=== PATIENT | female | born 1955 | race Caucasian/White ===

== ENCOUNTER → 2016-08-23 | Outpatient (CLI) | payer MEDICARE, MEDICAID ==
[~2016-08-23] MED LIST: ACET-2321 PO; CARV3.12 PO; DOXY100T2 PO; FURO20TA4 PO; INSU100C14 SQ; LEVO150T11 PO; LISI10TA7 PO
== END ==
LOC: NWCC 11:03
PROVIDERS: ATTEND Internal Medicine
DX: I87.2 Venous insufficiency (chronic) (peripheral) (principal); R60.0 Localized edema; L97.222 Non-pressure chronic ulcer of left calf with fat layer exposed; L97.822 Non-pressure chronic ulcer of other part of left lower leg with fat layer exposed; S81.801A Unspecified open wound, right lower leg, initial encounter
CPT/HCPCS: 11042; 11045; 97597; A6209; G0463

== ENCOUNTER → 2016-09-06 | Outpatient (CLI) | payer MEDICARE, MEDICAID ==
[~2016-09-06] MED LIST changes: +CALMOSEPTINE OINTMENT 3.5 G PACKET TOP ONE; +SALINE FLUSH 10ml SYRINGE IVF ONE
== END ==
LOC: NWCC 10:33
PROVIDERS: ATTEND Internal Medicine
DX: I87.2 Venous insufficiency (chronic) (peripheral) (principal); L97.822 Non-pressure chronic ulcer of other part of left lower leg with fat layer exposed; L97.222 Non-pressure chronic ulcer of left calf with fat layer exposed; R60.0 Localized edema; S81.801A Unspecified open wound, right lower leg, initial encounter; Z86.14 Personal history of Methicillin resistant Staphylococcus aureus infection
CPT/HCPCS: 11042; 11045; A6021; A6209; A9270; G0463

== ENCOUNTER → 2016-09-20 | Outpatient (CLI) | payer MEDICARE, MEDICAID ==
[~2016-09-20] MED LIST changes: -CALMOSEPTINE OINTMENT 3.5 G PACKET TOP ONE; -SALINE FLUSH 10ml SYRINGE IVF ONE
== END ==
LOC: NWCC 10:25
PROVIDERS: ATTEND Internal Medicine
DX: I87.2 Venous insufficiency (chronic) (peripheral) (principal); L97.822 Non-pressure chronic ulcer of other part of left lower leg with fat layer exposed; L97.222 Non-pressure chronic ulcer of left calf with fat layer exposed; S81.801A Unspecified open wound, right lower leg, initial encounter; R60.1 Generalized edema; Z86.14 Personal history of Methicillin resistant Staphylococcus aureus infection
CPT/HCPCS: 11042; 11045; A6209; G0463

== ENCOUNTER → 2016-10-05 | Outpatient (CLI) | payer MEDICARE, MEDICAID ==
[~2016-10-05] MED LIST changes: +CALMOSEPTINE OINT. 113 gm TUBE TOP ONE; +SALINE FLUSH 10ml SYRINGE IVF ONE
== END ==
LOC: NWCC 08:20
PROVIDERS: ATTEND Internal Medicine
DX: I87.2 Venous insufficiency (chronic) (peripheral) (principal); L97.822 Non-pressure chronic ulcer of other part of left lower leg with fat layer exposed; L97.222 Non-pressure chronic ulcer of left calf with fat layer exposed; R60.1 Generalized edema; S81.801A Unspecified open wound, right lower leg, initial encounter; L53.9 Erythematous condition, unspecified; Z86.14 Personal history of Methicillin resistant Staphylococcus aureus infection
CPT/HCPCS: 11042; 11045; A6209; A9270; G0463

== ENCOUNTER 2016-10-30 16:11 | Emergency (ER) | payer MEDICARE, MEDICAID ==
[~2016-10-30] VITALS: Ht 152.4 cm; Wt 106.0 kg
[~2016-10-30 16:11] MED LIST changes: -CALMOSEPTINE OINT. 113 gm TUBE TOP ONE; -SALINE FLUSH 10ml SYRINGE IVF ONE
--- OUTSIDE RECORDS SUMMARY | 2016-10-30 16:14 | XMS REPORT ---
Author Elli Brush 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
--- OUTSIDE RECORDS SUMMARY | 2016-10-30 16:14 | XMS REPORT ---
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
--- OUTSIDE RECORDS SUMMARY | 2016-10-30 16:14 | XMS REPORT ---
Author Elli Brush [facility] eClinicalWorks Address Unknown Phone Unavailable Care Team Providers Care Lock And Dam Operator Name Role Phone Elli Hyman CP Unavailable Allergies, Adverse Reactions, Alerts Substance Reaction Event Type Zinc Info Not Available Drug Allergy codeine Info Not Available Non Drug Allergy sulfa Info Not Available Non Drug Allergy latex welts Non Drug Allergy Problems Problem Type Condition Code Onset Dates Condition Status Problem Peripheral vascular disease I73.9 Active Problem Varicose veins of unspecified lower extremity with ulcer of unspecified site I83.009 Active Problem Adjustment disorder with depressed mood F43.21 Active Assessment Peripheral vascular disease I73.9 Active Assessment Non-pressure chronic ulcer of unspecified part of unspecified lower leg with unspecified severity L97.909 Active Problem Non-pressure chronic ulcer of unspecified part of unspecified lower leg with unspecified severity L97.909 Active Problem 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 Medications Medication Code System Code Instructions Start Date End Date Status Dosage Furosemide [facility] [address]-09 20 MG Orally Three times a week 1 tablet on Sunday, Sun, Sunday Hydrocodone-Acetaminophen [facility] [address]-93 7.5-325 MG Orally at bedtime and before wound center appointments May 24, 2016 May 31, 2016 1 tablet as needed Carvedilol [facility] [address]-83 3.125 MG Orally once a day 1 tablet with food Levothyroxine Sodium [facility] 22000186124 150 MCG 1 (ONE) TABLET, ORAL, DAILY Lisinopril [facility] [address]-02 10 MG Orally Once a day 1 tablet Humalog KwikPen [facility] [address]-00 100 UNIT/ML Subcutaneous three times a day sliding scale Procedures Procedure Coding System Code Date OFFICE VISIT, EST-LOW COMPLEXITY (15 MIN.) CPT-4 63574 May 24, 2016 [facility] visit Established Patient CPT-4 G0467 May 24, 2016 Vital Signs Date/Time: May 24, 2016 Temperature 97.8 F Height 60 in Weight 203 lbs Blood Pressure Diastolic 48 mm Hg Blood Pressure Systolic 104 mm Hg Cardiac Monitoring Heart Rate 60 /min BMI 39.64 Index Oximetry 97 % Results No Known Results Summary Purpose eClinicalWorks Submission
--- OUTSIDE RECORDS SUMMARY | 2016-10-30 16:15 | XMS REPORT ---
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 Assessment PVD (peripheral vascular disease) I73.9 Active Problem PVD (peripheral vascular disease) I73.9 Active Assessment 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 Medications Medication Code System Code Instructions Start Date End Date Status Dosage Lisinopril [facility] [address]-12 10 MG Orally Once a day 1 tablet Furosemide [facility] [address]-34 20 MG Orally Three times a week 1 tablet on Sunday, Sun, Sunday Carvedilol [facility] [address]-95 3.125 MG Orally once a day 1 tablet with food Levothyroxine Sodium [facility] 62130410043 150 MCG 1 (ONE) TABLET, ORAL, DAILY Humalog KwikPen [facility] [address]-42 100 UNIT/ML Subcutaneous three times a day sliding scale Procedures Procedure Coding System Code Date OFFICE VISIT, EST-LOW COMPLEXITY (15 MIN.) CPT-4 21139 Apr 19, 2016 [facility] visit Established Patient CPT-4 G0467 Apr 19, 2016 Vital Signs Date/Time: Apr 19, 2016 Temperature 97.8 F Height 60 in Weight 199.8 lbs Blood Pressure Diastolic 70 mm Hg Blood Pressure Systolic 122 mm Hg Cardiac Monitoring Heart Rate 56 /min BMI 39.02 Index Oximetry 98 % Results No Known Results Summary Purpose eClinicalWorks Submission
--- OUTSIDE RECORDS SUMMARY | 2016-10-30 16:15 | XMS REPORT ---
Author Nicki Rudolph Organization eClinicalWorks Address Unknown Phone Unavailable Care Team Providers Care Performance Architect Name Role Phone Nicki Magallon CP Unavailable Allergies, Adverse Reactions, Alerts Substance Reaction Event Type Zinc Info Not Available Drug Allergy codeine Info Not Available Non Drug Allergy sulfa Info Not Available Non Drug Allergy latex welts Non Drug Allergy Problems Problem Type Condition Code Onset Dates Condition Status Problem Varicose veins of unspecified lower extremity with ulcer of unspecified site I83.009 Active Problem Non-pressure chronic ulcer of unspecified part of unspecified lower leg with unspecified severity L97.909 Active Problem Peripheral vascular disease I73.9 Active Assessment Non-pressure chronic ulcer of unspecified part of unspecified lower leg with unspecified severity L97.909 Active Assessment Peripheral vascular disease I73.9 Active Problem 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 Assessment Varicose veins of unspecified lower extremity with ulcer of unspecified site I83.009 Active Medications Medication Code System Code Instructions Start Date End Date Status Dosage Levothyroxine Sodium [facility] 97735832126 150 MCG 1 (ONE) TABLET, ORAL, DAILY Carvedilol [facility] [address]-89 3.125 MG Orally once a day 1 tablet with food Lisinopril [facility] [address]-85 10 MG Orally Once a day 1 tablet Levaquin [facility] [address]-95 750 MG Orally every 24 hrs May 04, 2016Apr 1 tablet Furosemide [facility] [address]-00 20 MG Orally Three times a week 1 tablet on Sunday, Sun, Sunday Humalog KwikPen [facility] [address]-95 100 UNIT/ML Subcutaneous three times a day sliding scale Procedures Procedure Coding System Code Date OFFICE VISIT, EST-LOW COMPLEXITY (15 MIN.) CPT-4 07236 May 05, 2016 [facility] visit Established Patient CPT-4 G0467 May 05, 2016 Vital Signs Date/Time: May 05, 2016 Temperature 97.7 F Height 60 in Weight 202.4 lbs Blood Pressure Diastolic 58 mm Hg Blood Pressure Systolic 116 mm Hg Cardiac Monitoring Heart Rate 55 /min BMI 39.52 Index Oximetry 97 % Respiratory Rate 18 /min Results No Known Results Summary Purpose eClinicalWorks Submission
--- OUTSIDE RECORDS SUMMARY | 2016-10-30 16:15 | XMS REPORT ---
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 [address]-31 3.125 MG Orally once a day 1 tablet with food Results No Known Results Summary Purpose eClinicalWorks Submission
--- OUTSIDE RECORDS SUMMARY | 2016-10-30 16:15 | XMS REPORT ---
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
--- OUTSIDE RECORDS SUMMARY | 2016-10-30 16:15 | XMS REPORT ---
Author Anabella Piper Organization eClinicalWorks Address Unknown Phone Unavailable Care Team Providers Care Shear Scrapman Name Role Phone Anabella Weiner CP Unavailable Allergies No Known Allergies Problems Problem Type Condition Code Onset Dates Condition Status Assessment Encounter for consultation Z71.9 Active Problem Peripheral vascular disease I73.9 Active Problem Varicose veins of unspecified lower extremity with ulcer of unspecified site I83.009 Active Problem Adjustment disorder with depressed mood F43.21 Active Assessment Adjustment disorder with depressed mood F43.21 Active Assessment Medical non-compliance Z91.19 Active Problem Non-pressure chronic ulcer of unspecified part of unspecified lower leg with unspecified severity L97.909 Active Problem 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 Medications Medication Code System Code Instructions Start Date End Date Status Dosage Carvedilol [facility] [address]-88 3.125 MG Orally once a day 1 tablet with food Levaquin [facility] [address]-28 750 MG Orally every 24 hrs May 04, 2016Apr 1 tablet Humalog KwikPen [facility] [address]-19 100 UNIT/ML Subcutaneous three times a day sliding scale Lisinopril [facility] [address]-97 10 MG Orally Once a day 1 tablet Furosemide [facility] [address]-12 20 MG Orally Three times a week 1 tablet on Sunday, Sun, Sunday Levothyroxine Sodium [facility] 35167457872 150 MCG 1 (ONE) TABLET, ORAL, DAILY Results No Known Results Summary Purpose eClinicalWorks Submission
--- OUTSIDE RECORDS SUMMARY | 2016-10-30 16:15 | XMS REPORT ---
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
--- OUTSIDE RECORDS SUMMARY | 2016-10-30 16:15 | XMS REPORT ---
Author Elli Brush [facility] eClinicalWorks Address Unknown Phone Unavailable Care Team Providers Care Crm Marketing Manager Name Role Phone Elli Hyman CP Unavailable Allergies, Adverse Reactions, Alerts Substance Reaction Event Type Zinc Info Not Available Drug Allergy codeine Info Not Available Non Drug Allergy sulfa Info Not Available Non Drug Allergy latex welts Non Drug Allergy Problems Problem Type Condition Code Onset Dates Condition Status Assessment Peripheral vascular disease I73.9 Active Assessment Proteus mirabilis infection B96.4 Active Assessment Group B streptococcal infection A49.1 Active Assessment Non-pressure chronic ulcer of unspecified part of unspecified lower leg with unspecified severity L97.909 Active Problem Peripheral vascular disease I73.9 Active Problem Varicose veins of unspecified lower extremity with ulcer of unspecified site I83.009 Active Problem Adjustment disorder with depressed mood F43.21 Active Assessment Pseudomonas aeruginosa infection A49.8 Active Assessment MRSA (methicillin resistant staph aureus) culture positive Z22.322 Active Problem Non-pressure chronic ulcer of unspecified part of unspecified lower leg with unspecified severity L97.909 Active Problem 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 Medications Medication Code System Code Instructions Start Date End Date Status Dosage Furosemide [facility] [address]-52 20 MG Orally Three times a week 1 tablet on Sunday, Sun, Sunday Lisinopril [facility] [address]-69 10 MG Orally Once a day 1 tablet Levothyroxine Sodium [facility] 47924027112 150 MCG 1 (ONE) TABLET, ORAL, DAILY Levaquin [facility] [address]-37 750 MG Orally every 24 hrs May 04, 2016Apr 1 tablet Humalog KwikPen [facility] [address]-25 100 UNIT/ML Subcutaneous three times a day sliding scale Carvedilol [facility] [address]-19 3.125 MG Orally once a day 1 tablet with food Procedures Procedure Coding System Code Date OFFICE VISIT, EST-LOW COMPLEXITY (15 MIN.) CPT-4 88412 2016 [facility] visit Established Patient CPT-4 G0467 2016 Vital Signs Date/Time: 2016 Temperature 97.8 F Height 60 in Weight 202.8 lbs Blood Pressure Diastolic 50 mm Hg Blood Pressure Systolic 108 mm Hg Cardiac Monitoring Heart Rate 60 /min BMI 39.60 Index Oximetry 98 % Results No Known Results Summary Purpose eClinicalWorks Submission
--- OUTSIDE RECORDS SUMMARY | 2016-10-30 16:15 | XMS REPORT ---
Author Author Hebert Ventura Organization [facility] Address [address] [place] [address] Care Team Providers Care Dental Officer Name Role Phone Hebert Ventura Unavailable [phone] PROBLEMS Type Condition ICD9-CM Code KNP89-QF Code Onset Dates Condition Status SNOMED Code Problem Leg ulcer, left L97.929 Active [id number] Problem Hypertension I10 Active 64951033 Problem Abnormal EKG R94.31 Active 601070898 Problem Dyspnea on effort R06.09 Active 26570350 ALLERGIES Unknown Allergies SOCIAL HISTORY No smoking Hx information available PLAN OF CARE VITAL SIGNS MEDICATIONS Unknown Medications RESULTS No Results PROCEDURES No Known procedures IMMUNIZATIONS No Known Immunizations
--- OUTSIDE RECORDS SUMMARY | 2016-10-30 16:15 | XMS REPORT | Continuity of Care Document ---
Author Author [facility] Organization [facility] Address Unknown Phone Unavailable Support Name Relationship Address Phone STEPH DAVIS DO Caregiver [address] [place] [address] Unavailable STEPH DAVIS DO Caregiver [address] [place] [address] Unavailable KATHY CHUN APRN Caregiver [address] [place] [address] Unavailable ESTEBAN PADRON Next Of Kin Unknown [phone] Insurance Providers Guarantor Boogie Padron Address [address] [address] Email DENIED/NO TO PT PORTAL Payer [facility] Community Plan Policy Number [id number] Subscriber's Name Boogie Padron Relationship 18 Self Effective Date 16 Expiration Date 16 Payer Medicare Policy Number [id number] Subscriber's Name Boogie Padron Relationship 18 Self Advance Directives Directive Response Recorded Date/Time Ordered Resuscitation Status Full Code 05/10/16 12:56pm Resuscitation Documents on File No 05/10/16 11:21am DPOA for Healthcare Only No 05/10/16 8:32pm Living Will No 05/10/16 11:21am Problems Active Problems Medical Problem Onset Date Status CHF (congestive heart failure) Unknown DM (diabetes mellitus) Unknown HTN (hypertension) Unknown Hypothyroidism Unknown Obesity (BMI 35.0-39.9 without comorbidity) Unknown PVD (peripheral vascular disease) Unknown Ulcer, venous stasis Unknown Medications Current Home Medications Medication Dose Units Route Directions Days Qty Instructions Start Date Acetaminophen (Tylenol) 325 Mg Tablet 650 Mg Oral Q6h/0300,0900,1500,2100 as needed for Pain 30 Tablet 05/12/16 Carvedilol (Coreg) 3.125 Mg Tablet 3.125 Mg Oral Daily BEST WITH FOOD. 05/10/16 Doxycycline Hyclate 100 Mg Tablet 100 Mg Oral Twice Daily With Meals 28 Tablet 05/12/16 Furosemide 20 Mg Tablet 1 Tab Oral Mwf 05/10/16 Insulin Lispro (Humalog) 100 Unit/1 Ml Cartridge 5 Unit Sub-Q Give With Breakfast 05/10/16 Insulin Lispro (Humalog) 100 Unit/1 Ml Cartridge 7 Unit Sub-Q Give With Lunch 05/10/16 Insulin Lispro (Humalog) 100 Unit/1 Ml Cartridge 7 Unit Sub-Q Give With Supper 05/10/16 Levothyroxine Sodium 150 Mcg Tablet 150 Mcg Oral Before Breakfast Once daily before breakfast. 05/10/16 Lisinopril 10 Mg Tablet 10 Mg Oral Daily for Hypertension Social History Social History Problem Response Recorded Date/Time Onset Date Status Reason for Hospitalization cellulitis and diabetic wound 05/12/2016 1:47pm Not Applicable Not Applicable Has the pt used tobacco in the last 12 months No 2016 11:28am Not Applicable Not Applicable Query Response Start Date Stop Date Smoking Status Former smoker Hospital Discharge Instructions Instructions: Care Instructions: I was in the hospital because (patient own words): I gotta infection and they want to give me certain medicines Discharge Diet: 1800-calorie ADA Discharge Activity: Up with walker Try to keep legs elevated when sitting Follow Up Appointments: PLEASE MAKE APPOINTMENT WITH [facility] CL[facility] ON Sunday05/15/16 Pending Lab / Results: No Pending Lab Patient Instructions: Monitor your blood sugars fasting and 2 hours after meals Expected Signs/Symptoms: Not applicable Notify Physician If: Call your physician if you're having increased pain, fevers, or significant drainage from your leg wound During Business Hours:: Please call the physician's office at After Business Hours:: Please call [phone] and have the golf course equipment operator page the physician. Pain Management/Treatment: Tylenol as needed Pain Scale Utilized to Educate Patient: 0-10 Pain Scale Wound/Incision Care: Keep dressing on leg dry and intact and it will be changed on May 15 in the wound clinic Condition at time of discharge: Good Plan of Care Discharge Date 05/12/16 4:30pm Disposition 06 HOME HEALTH SERVICE Instructions/Education Provided [facility] Congestive Heart Failure DI for Wound Dehiscence Prescriptions See Medication Section Additional Instructions/Education follow up in the wound care clinic this SundayMay 15 Follow up in 1-[address] Davis Care Plan and Goals See Discharge Instructions Section Functional Status Query Response Date Recorded Mobility Status Ambulatory w/assist 2016 2:48pm Assistive Devices Front Wheeled Walker 2016 2:48pm Activity Limitations Pain 2016 2:48pm Feeding Ability Independent 2016 2:48pm Toileting Ability Independent 2016 2:48pm Grooming Ability Independent 2016 2:48pm Dressing Ability Independent 2016 2:48pm Driving Ability Dependent 2016 2:48pm Housework Ability Independent 2016 2:48pm Meal Preparation Ability Independent 2016 2:48pm Stair Climbing Ability Independent 2016 2:48pm Ability to complete ADL's impeded by No change 2016 2:48pm Cognitive/Perceptual Impairments Impaired vision 2016 2:48pm Visual Assistive Devices Glasses With patient 2016 2:48pm Preferred Method of Learning Reading Listening 2016 2:48pm Allergies, Adverse Reactions, Alerts Allergen Type Severity Reaction Status Last Updated Sulfa (Sulfonamide Antibiotics) Allergy Mild RASH Active 05/10/16 Latex Allergy Intermediate HIVES Active 05/10/16 Sulfur dioxide Allergy Mild RASH Active 05/10/16 Immunizations Query Response on File Recorded Date/Time Hx Influenza Vaccination Y Mar 2016 05/10/16 11:28am Hx Pneumococcal Vaccination No 05/10/16 11:28am Hx Influenza Vaccination Y Mar 2016 05/10/16 11:28am Vital Signs Acute Vital Signs Vital Response Date/Time Temperature (Fahrenheit) 97.0 deg F (96.8 - 99.1) 05/12/2016 4:00pm Temperature (Calculated Celsius) 36.60445 degrees C (36.0 - 37.3) 05/12/2016 4:00pm Pulse Rate (adult) 75 bpm (60 - 100) 05/12/2016 4:00pm Respiratory Rate 16 breaths/min (10 - 20) 05/12/2016 4:00pm O2 Sat by Pulse Oximetry 95 % (90 - 100) 05/12/2016 4:00pm Oxygen Delivery Method Room Air 05/12/2016 4:00pm Blood Pressure 142/70 mm Hg 05/12/2016 4:00pm Blood Pressure Source Automatic Cuff 05/12/2016 4:00pm Height (Feet) 5 feet 05/11/2016 5:58pm Height (Inches) 0.00 inches 05/11/2016 5:58pm Weight (Kilograms) 93.000 kg 05/12/2016 7:56am Body Mass Index (BMI) 39.7 2016 11:27am Results Laboratory Results Test Name Result Units Flags Reference Collection Date/Time Result Date/ Time Comments White Blood Count 4.6 T/MM3 4.5-11.0 05/12/2016 7:59am 05/12/2016 8: 16am Red Blood Count 4.24 M/MM3 4.00-5.20 05/12/2016 7:59am 05/12/2016 8: 16am Hemoglobin 12.3 GM/DL 12-16 05/12/2016 7:59am 05/12/2016 8:16am Hematocrit 39.4 % 36-46 05/12/2016 7:59am 05/12/2016 8:16am Mean Corpuscular Volume 92.9 UM3 80-100 05/12/2016 7:59am 05/12/2016 8: 16am Mean Corpuscular Hemoglobin 29.0 UUG 26-34 05/12/2016 7:59am 2015 8:16am Mean Corpuscular Hemoglobin Concent 31.2 GM/DL 31-37 05/12/2016 7:59am 05/12/2016 8:16am RDW Standard Deviation 46.1 FL 36.9-50.2 05/12/2016 7:59am 05/12/2016 8 :16am Platelet Count 124 T/MM3 L 130-400 05/12/2016 7:59am 05/12/2016 8:16am Mean Platelet Volume 11.5 UM3 9.4-12.4 05/12/2016 7:59am 05/12/2016 8: 16am Neutrophils (%) (Auto) 73.7 % H 33-66 05/12/2016 7:59am 05/12/2016 8: 16am Lymphocytes (%) (Auto) 14.2 % L 23-45 05/12/2016 7:59am 05/12/2016 8: 16am Monocytes (%) (Auto) 8.7 % 0-9.0 05/12/2016 7:59am 05/12/2016 8:16am Eosinophils (%) (Auto) 2.8 % 0-4 05/12/2016 7:59am 05/12/2016 8:16am Basophils (%) (Auto) 0.4 % 0-2 05/12/2016 7:59am 05/12/2016 8:16am Immature Granulocyte % (Auto) 0.2 % 0.0-0.5 05/12/2016 7:59am 2015 8:16am Absolute Neutrophils (auto) 3.4 T/MM3 1.8-7.7 05/12/2016 7:59am 2015 8:16am Absolute Lymphocytes (auto) 0.7 T/MM3 L 1-4.8 05/12/2016 7:59am 2015 8:16am Absolute Monocytes (auto) 0.4 T/MM3 0-0.8 05/12/2016 7:59am 05/12/2016 8:16am Absolute Eosinophils (auto) 0.1 T/MM3 0-0.5 05/12/2016 7:59am 2015 8:16am Absolute Basophils (auto) 0.0 T/MM3 0-0.2 05/12/2016 7:59am 05/12/2016 8:16am Absolute Immature Granulocyte (auto 0.01 T/MM3 0.00-0.03 05/12/2016 7: 59am 05/12/2016 8:16am Prothromb Time International Ratio 1.21 0.99-1.21 05/11/2016 4:37am 05/11/2016 5:22am THERAPUTIC RANGE=2.00-3.00 FOR ANTI-THROMBOSIS THERAPUTIC RANGE=2.50-3.50 FOR IMPLANTED VALVE Activated Partial Thromboplast Time 37.6 SEC H 24-36 05/11/2016 4:37am 05/11/2016 5:22am Icterus Index < 2 0-7 05/12/2016 7:59am 05/12/2016 8:28am Chemistry Specimen Hemolysis 50 H 0-25 05/12/2016 7:59am 05/12/2016 8: 28am 26-70: Specimen Exhibited Slight Hemolysis - can falsely elevate K (Potassium) and Urine Protein. Turbidity < 20 0-20 05/12/2016 7:59am 05/12/2016 8:28am Sodium Level 141 MEQ/L 134-144 05/12/2016 7:59am 05/12/2016 8:28am Potassium Level 5.0 MEQ/L 3.6-5 05/12/2016 7:59am 05/12/2016 8:28am Chloride Level 107 MEQ/L 98-107 05/12/2016 7:59am 05/12/2016 8:28am Carbon Dioxide Level 24 MEQ/L 22-30 05/12/2016 7:59am 05/12/2016 8: 28am Anion Gap 10 MEQ/L 5-15 05/12/2016 7:59am 05/12/2016 8:28am Blood Urea Nitrogen 34.0 MG/DL H 7-05/12/2016 7:59am 05/12/2016 8: 28am Creatinine 1.1 MG/DL 0.7-1.2 05/12/2016 7:59am 05/12/2016 8:28am BUN/Creatinine Ratio 31 RATIO H 6-05/12/2016 7:59am 05/12/2016 8: 28am Glomerular Filtration Rate Calc 50 05/12/2016 7:59am 05/12/2016 8: 28am Glucose Level 122 MG/DL H 65-110 05/12/2016 7:59am 05/12/2016 8:28am Calculated Osmolality 280 MOSM/KG 261-280 05/12/2016 7:59am 05/12/2016 8:28am Calcium Level 9.0 MG/DL 8.4-10.2 05/12/2016 7:59am 05/12/2016 8:28am Phosphorus Level 3.2 MG/DL 2.5-4.5 2016 1:19pm 2016 2:16pm Total Bilirubin 0.90 MG/DL 0.20-1.30 05/12/2016 7:59am 05/12/2016 8: 28am Alkaline Phosphatase 115 U/L 38-126 05/12/2016 7:59am 05/12/2016 8: 28am Total Protein 7.1 G/DL 6.3-8.2 05/12/2016 7:59am 05/12/2016 8:28am Albumin 3.5 G/DL 3.5-5.0 05/12/2016 7:59am 05/12/2016 8:28am Globulin 3.6 G/DL 2.4-3.6 05/12/2016 7:59am 05/12/2016 8:28am Albumin/Globulin Ratio 1.0 RATIO L 1.1-2.2 05/12/2016 7:59am 05/12/2016 8:28am Aspartate Amino Transf (AST/SGOT) 21 U/L 14-36 05/12/2016 7:59am 2015 8:28am Alanine Aminotransferase (ALT/SGPT) 22 U/L 9-52 05/12/2016 7:59am 05/12 8:28am Total Creatine Kinase 38 U/L 30-135 2016 1:19pm 2016 2: 55pm Troponin I 0.012 ng/ml 0-0.12 2016 1:19pm 2016 9:26pm Troponin values with a difference of 55% increase from orginal troponin value represent a true biological DELTA value. (%increase Calc=Orginal Troponin value, divided by subsequent Troponin value, multiplied by 100) C-Reactive Protein 35.5 MG/L H 0-9 05/12/2016 7:59am 05/12/2016 8:28am Magnesium Level 1.9 MG/DL 1.6-2.3 2016 1:19pm 2016 2:31pm Plasma Lactate 1.2 MMOL/L 0.6-2.2 2016 1:19pm 2016 2:16pm Procalcitonin < 0.05 NG/ML 2016 1:19pm 2016 2:43pm PCT < /=0.5 ng/mL - sepsis not likely; PCT >0.5 and </=2 ng/mL - sepsis possible; PCT >2 ng/mL - sepsis likely; PCT >/=10 ng/mL - systemic inflammatory response - sepsis or septic shock highly indicated. Thyroid Stimulating Hormone (TSH) 1.03 MIU/L 0.47-4.68 2016 1: 19pm 2016 2:59pm Urine Collection Type CLEANCATCH-MIDSTREAM 2016 3:38pm 2015 3:50pm Urine Color YELLOW YELLOW 2016 3:38pm 2016 3:50pm Urine Turbidity CLEAR CLEAR 2016 3:38pm 2016 3:50pm Urine Specific [place] 1.020 1.015-1.025 2016 3:38pm 2015 3:50pm Urine pH 5.5 5.0-8.0 2016 3:38pm 2016 3:50pm Urine Leukocyte Esterase NEGATIVE NEGATIVE 2016 3:38pm 2015 3:50pm Urine Nitrite NEGATIVE NEGATIVE 2016 3:38pm 2016 3:50pm Urine Protein NEGATIVE NEGATIVE 2016 3:38pm 2016 3:50pm Urine Glucose (UA) NEGATIVE NEGATIVE 2016 3:38pm 2016 3: 50pm Urine Ketones NEGATIVE NEGATIVE 2016 3:38pm 2016 3:50pm Urine Urobilinogen 0.2 EU/DL NORMAL 2016 3:38pm 2016 3: 50pm Urine Bilirubin NEGATIVE NEGATIVE 2016 3:38pm 2016 3: 50pm Urine Blood TRACE-INTACT A NEGATIVE 2016 3:38pm 2016 3: 50pm Urine WBC 0-1 /HPF 0-5 2016 3:38pm 2016 4:19pm Urine RBC 0-1 /HPF 0-3 2016 3:38pm 2016 4:19pm Urine Squamous Epithelial Cells 5-10 2016 3:38pm 2016 4 :19pm Urine Bacteria TRACE H NEGATIVE 2016 3:38pm 2016 4:19pm Urine Culture Indicated CULT NOT INDICATED 2016 3:38pm 2015 4:19pm Glucometer 211 mg/dL H 65-110 05/12/2016 11:18am 05/12/2016 2:16pm Microbiology Results Procedure Source Organism/Result Collection Date/Time Result Date/Time Result Status Blood Culture Peripheral/Iv Start NO GROWTH AFTER 48 HOURS 2016 1: 19pm 05/12/2016 1:55pm Preliminary WOUND CULTURE DEEP TISS-AER/AN Leg, Left Lower S. AUREUS, METH-RESISTANT 4:46pm 05/12/2016 9:03am Preliminary PSEUDOMONAS AERUGINOSA 2016 4:46pm 05/12/2016 9:03am Preliminary Name: BOOGIE PADRON Unit #: [id number] : 1955 Sex: F DISCHARGE SUMMARY Admit Date: 05/10/16 Report #: [id number] [facility] General Date Date DATE: 05/12/16 TIME: 13:31 Attending Physician Steph Davis DO Admitting Physician Steph Davis DO Consulting Physician Em Currie MD Admitting Diagnosis lower extremity ulcers, cellulitis. Discharge Diagnosis #1 chronic venous stasis ulcer left leg associated with diabetes #2 cellulitis associated with ulcer left leg #3 type 2 diabetes mellitus #4 hypothyroidism #5 hypertension #6 congestive heart failure #7 history of non-adherence with medical recommendations Procedures Bedside debridement of left venous stasis ulcer by Dr. Hunt on 05/11/2016 Laboratory Laboratory Tests Test 05/11/16 04:37 05/11/16 05:41 05/11/16 11:03 05/11/16 16:55 White Blood Count 4.4T/MM3 (4.5-11.0) Red Blood Count 3.76M/MM3 (4.00-5.20) Hemoglobin 11.2GM/DL (12-16) Hematocrit 35.2% (36-46) Mean Corpuscular Volume 93.6UM3 (80-100) Mean Corpuscular Hemoglobin 29.8UUG (26-34) Mean Corpuscular Hemoglobin Concent 31.8GM/DL (31-37) RDW Standard Deviation 45.3FL (36.9-50.2) Platelet Count 114T/MM3 (130-400) Mean Platelet Volume 11.2UM3 (9.4-12.4) Immature Granulocyte % (Auto) 0.0% (0.0-0.5) Neutrophils (%) (Auto) 67.6% (33-66) Lymphocytes (%) (Auto) 16.4% (23-45) Monocytes (%) (Auto) 12.3% (0-9.0) Eosinophils (%) (Auto) 3.2% (0-4) Basophils (%) (Auto) 0.5% (0-2) Absolute Immature Granulocyte (auto 0.00T/MM3 (0.00-0.03) Absolute Neutrophils (auto) 3.0T/MM3 (1.8-7.7) Absolute Lymphocytes (auto) 0.7T/MM3 (1-4.8) Absolute Monocytes (auto) 0.5T/MM3 (0-0.8) Absolute Eosinophils (auto) 0.1T/MM3 (0-0.5) Absolute Basophils (auto) 0.0T/MM3 (0-0.2) Prothromb Time International Ratio 1.21 (0.99-1.21) Activated Partial Thromboplast Time 37.6SEC (24-36) Turbidity < 20 (0-20) Sodium Level 141MEQ/L (134-144) Potassium Level 4.4MEQ/L (3.6-5) Chloride Level 105MEQ/L (98-107) Carbon Dioxide Level 25MEQ/L (22-30) Anion Gap 11MEQ/L (5-15) Blood Urea Nitrogen 33.0MG/DL (7-17) Creatinine 1.1MG/DL (0.7-1.2) Glomerular Filtration Rate Calc 50 BUN/Creatinine Ratio 30RATIO (6-26) Glucose Level 134MG/DL (65-110) Calculated Osmolality 280MOSM/KG (261-280) Calcium Level 8.8MG/DL (8.4-10.2) Total Bilirubin 0.70MG/DL (0.20-1.30) Icterus Index < 2 (0-7) Aspartate Amino Transf (AST/SGOT) 15U/L (14-36) Alanine Aminotransferase (ALT/SGPT) 23U/L (9-52) Alkaline Phosphatase 105U/L (38-126) Total Protein 5.9G/DL (6.3-8.2) Albumin 2.8G/DL (3.5-5.0) Globulin 3.1G/DL (2.4-3.6) Albumin/Globulin Ratio 0.9RATIO (1.1-2.2) Chemistry Specimen Hemolysis < 15 (0-25) Glucometer 141mg/dL (65-110) 273mg/dL (65-110) 134mg/dL (65-110) Test 05/11/16 19:43 05/11/16 20:41 05/12/16 05:30 05/12/16 07:59 White Blood Count 5.7T/MM3 (4.5-11.0) 4.6T/MM3 (4.5-11.0) Red Blood Count 4.16M/MM3 (4.00-5.20) 4.24M/MM3 (4.00-5.20) Hemoglobin 12.4GM/DL (12-16) 12.3GM/DL (12-16) Hematocrit 38.1% (36-46) 39.4% (36-46) Mean Corpuscular Volume 91.6UM3 (80-100) 92.9UM3 (80-100) Mean Corpuscular Hemoglobin 29.8UUG (26-34) 29.0UUG (26-34) Mean Corpuscular Hemoglobin Concent 32.5GM/DL (31-37) 31.2GM/DL (31-37) RDW Standard Deviation 45.6FL (36.9-50.2) 46.1FL (36.9-50.2) Platelet Count 122T/MM3 (130-400) 124T/MM3 (130-400) Mean Platelet Volume 11.6UM3 (9.4-12.4) 11.5UM3 (9.4-12.4) Immature Granulocyte % (Auto) 0.5% (0.0-0.5) 0.2% (0.0-0.5) Neutrophils (%) (Auto) 69.6% (33-66) 73.7% (33-66) Lymphocytes (%) (Auto) 15.9% (23-45) 14.2% (23-45) Monocytes (%) (Auto) 11.1% (0-9.0) 8.7% (0-9.0) Eosinophils (%) (Auto) 2.6% (0-4) 2.8% (0-4) Basophils (%) (Auto) 0.3% (0-2) 0.4% (0-2) Absolute Immature Granulocyte (auto 0.03T/MM3 (0.00-0.03) 0.01T/MM3 (0.00-0.03) Absolute Neutrophils (auto) 4.0T/MM3 (1.8-7.7) 3.4T/MM3 (1.8-7.7) Absolute Lymphocytes (auto) 0.9T/MM3 (1-4.8) 0.7T/MM3 (1-4.8) Absolute Monocytes (auto) 0.6T/MM3 (0-0.8) 0.4T/MM3 (0-0.8) Absolute Eosinophils (auto) 0.2T/MM3 (0-0.5) 0.1T/MM3 (0-0.5) Absolute Basophils (auto) 0.0T/MM3 (0-0.2) 0.0T/MM3 (0-0.2) Glucometer 155mg/dL (65-110) 127mg/dL (65-110) Turbidity < 20 (0-20) Sodium Level 141MEQ/L (134-144) Potassium Level 5.0MEQ/L (3.6-5) Chloride Level 107MEQ/L (98-107) Carbon Dioxide Level 24MEQ/L (22-30) Anion Gap 10MEQ/L (5-15) Blood Urea Nitrogen 34.0MG/DL (7-17) Creatinine 1.1MG/DL (0.7-1.2) Glomerular Filtration Rate Calc 50 BUN/Creatinine Ratio 31RATIO (6-26) Glucose Level 122MG/DL (65-110) Calculated Osmolality 280MOSM/KG (261-280) Calcium Level 9.0MG/DL (8.4-10.2) Total Bilirubin 0.90MG/DL (0.20-1.30) Icterus Index < 2 (0-7) Aspartate Amino Transf (AST/SGOT) 21U/L (14-36) Alanine Aminotransferase (ALT/SGPT) 22U/L (9-52) Alkaline Phosphatase 115U/L (38-126) C-Reactive Protein 35.5MG/L (0-9) Total Protein 7.1G/DL (6.3-8.2) Albumin 3.5G/DL (3.5-5.0) Globulin 3.6G/DL (2.4-3.6) Albumin/Globulin Ratio 1.0RATIO (1.1-2.2) Chemistry Specimen Hemolysis 50 (0-25) Microbiology Microbiology Date/Time Source Procedure Growth Status 05/10/16 13:19 Peripheral/Iv Start Blood Culture - Preliminary NO GROWTH AFTER 24 HOURS Resulted 05/10/16 13:19 Peripheral/Iv Start Blood Culture - Preliminary NO GROWTH AFTER 24 HOURS Resulted 05/10/16 16:46 Leg Left Lower Gram Stain - Final Resulted 05/10/16 16:46 - Preliminary S. Aureus, Meth-Resistant Pseudomonas Aeruginosa Resulted GRAM STAIN Final 05/11/16-1017 RESULT FEW GRAM POSITIVE COCCI FEW EPITHELIAL CELLS WOUND CULTURE DEEP TISS-AER/AN Preliminary 05/12/160903 Organism 1 S. AUREUS, METH-RESISTANT Organism 2 PSEUDOMONAS AERUGINOSA MRSA P AERUGINO INTERP ANNEMARIE INTERP ANNEMARIE ------ --------- ------ --------- CEFEPIME S 4 CEFTAZIDIME S 4 CIPROFLOXACIN R >=8 CLINDAMYCIN S 0.25 DOXYCYCLINE S <=0.5 ERYTHROMYCIN R >=8 GENTAMICIN S <=0.5 S <=1 LEVOFLOXACIN R >=8 R >=8 LINEZOLID S 2 MEROPENEM R >=16 OXACILLIN R >=4 TETRACYCLINE S <=1 TIGECYCLINE S <=0.12 TOBRAMYCIN S <=1 TRIMETH/SULFA S 40 PIPERACILL/TAZO S 16 VANCOMYCIN S 1 WOUND CULTURE DEEP TISS-AER/AN Preliminary (changed) 05/11/161227 Organism 1 STAPHYLOCOCCUS AUREUS Organism 2 GRAM NEGATIVE [place] WOUND CULTURE DEEP TISS-AER/AN Preliminary (changed) 05/11/16 CULTURE INITIATED - RESULTS PENDING WOUND CULTURE DEEP TISS-AER/AN Preliminary (changed) 05/10/16 CULTURE INITIATED - RESULTS PENDING Radiology Bilateral leg venous Dopplers negative for DVT History of Present Illness patient is a pleasant 61yo female known to our clinic. she has a history of T2DM and chronic venous insufficiency and she has been battling lower extremity ulcers on-and-off for years. patient is a poor historian but, best as I can tell, she states she had somewhat of a worsening of this 1 to 2 months ago. she had several develop on the anterior and lateral surfaces of her lower legs/shins. they became painful and had extending redness from them which developed later on as well. increasing pain and a green to white purulent discharge was noted also. attempts at wound care and oral antibiotics as an outpatient were not successful and a subsequent wound culture grew out MRSA, pseudomonas (resistant to PO floroquinolones) as well as proteus. given the failure of antibiotics as well as the resistent bacteria growing it was opted to hospitalize patient for IV antibiotics and further workup. the patient has felt well otherwise throughout and vitals have been stable. currently, as I see the patient, she is feeling ok except for the leg issues. patient denies fevers. maybe a few chills here and there but nothing major. no night sweats or other constitutional symptoms. sugars have looked ok overall. no syncope, dizziness, headaches, stroke symptoms, focal neurologic deficits, URI symptoms. no chest pain, SOA, orthopnea, PND, heart failure symptoms, decrease in exertional tolerance, hemoptysis, cough, sputum production, ab pain, GERD symptoms, unintentional weight loss, hematemesis, coffee ground emesis, melena, BRBPR, constipation, diarrhea, dysuria, hematuria, body aches, fatigue, urinary frequency, flank pain, nocturia, polyuria, oliguria, other urinary symptoms. home health care had been working with patient on dressing changes. see above and below for further review of systems. Hospital Course The patient was admitted on May 10 with chronic venous stasis ulcer of the left leg with surrounding cellulitis. She was started on vancomycin and cefepime by Dr. Davis. Blood cultures were obtained and were negative. Wound cultures revealed MRSA and Pseudomonas resistant to fluoroquinolones which is consistent with previous wound culture results. Dr. Hunt was consulted and performed debridement at bedside. Dr. Em Currie was consulted on 05/12/2016 and evaluated the patient and reviewed the chart and recommended oral doxycycline 100 mg by mouth twice a day for [address] Hunt recommended that the patient's wound be re- dressed today and then keep dressing intact until she follows up at the wound clinic on Sunday. The patient has had no fevers during this hospital course. She has been eating and drinking well. Her chronic medical conditions including hypertension and diabetes have been stable. On the day of discharge Dr. Sosa did see the patient at the request of Dr. Davis, while he is out of town. Today the patient denies any complaints other than some mild leg discomfort which is chronic. Breathing is okay but she notices an occasional wheeze. No coughing. No shortness of breath. No chest pain or abdominal pain. She is eating and drinking well. She is urinating well and having normal bowel movements. Vital signs of been stable. She did have a mild headache this morning but that resolved. On exam she is alert and oriented 3 and in no acute distress. Chest is clear to auscultation. Cardiovascular reveals a regular rate and rhythm. Abdomen is soft with a ventral hernia, nontender with positive bowel sounds. Extremities reveal chronic venous stasis changes. Left leg is currently wrapped. On 05/12/2016. The patient was stable for dismissal to home with close follow- [facility] She will discharge to home with home health which she had been receiving prior to admission. Greater than 30 minutes of time spent on dismissal day. Problems: Code Status Full Code Home Meds Active Scripts Acetaminophen (Tylenol) 325 Mg Tablet, 650 MG PO Q6HR Y for PAIN, #30 TAB Prov:LOLI SOSA MD 05/12/16 Doxycycline Hyclate (Doxycycline Hyclate) 100 Mg Tablet, 100 MG PO BIDWM, #28 TAB Prov:LOLI SOSA MD 05/12/16 Reported Medications Insulin Lispro (Humalog) 100 Unit/1 Ml Cartridge, 7 UNIT SQ WS, VIAL 05/10/16 Insulin Lispro (Humalog) 100 Unit/1 Ml Cartridge, 7 UNIT SQ WL, VIAL 05/10/16 Insulin Lispro (Humalog) 100 Unit/1 Ml Cartridge, 5 UNIT SQ WB, VIAL 05/10/16 Furosemide (Furosemide) 20 Mg Tablet, 1 TAB PO MWF, TAB 05/10/16 Lisinopril (Lisinopril) 10 Mg Tablet, 10 MG PO DAILY for HYPERTENSION, TAB 05/10/16 Levothyroxine Sodium (Levothyroxine Sodium) 150 Mcg Tablet, 150 MCG PO ACB, TAB Once daily before breakfast. 05/10/16 Carvedilol (Coreg) 3.125 Mg Tablet, 3.125 MG PO DAILY, TAB BEST WITH FOOD. 05/10/16 Discharge Disposition Dismiss to home in stable condition Copies To 1: EM CURRIE MD; STEPH DAVIS DO Copies To 2: JUAN HUNT MD, FACS, CWS LOLI SOSA MD May 12, 2016 13:41 Procedures Procedure Status Date Provider(s) MARGIE SUBQ TISSUE 20 SQ CM/< Completed 02/15/16 MARGIE SUBQ TISSUE ADD-ON Completed 02/15/16 APPLY MULTLANEUDY COMPRS LWR LEG Completed 02/15/16 [id number] ITEM OR SERVICE Completed 02/15/16 E&M LEVEL - FACILITY Completed 02/15/16 APPLY MULTLANEUDY COMPRS LWR LEG Completed 02/22/16 [id number] ITEM OR SERVICE Completed 02/22/16 E&M LEVEL - FACILITY Completed 02/22/16 ROUTINE VENIPUNCTURE Completed 04/07/16 COMPREHEN METABOLIC PANEL Completed 04/07/16 Encounters Encounter Location Arrival/Admit Date Discharge/Depart Date Attending Provider Discharged Inpatient (obs) [facility] 05/10/16 10:57am 05/12/16 4 :30pm STEPH DAVIS DO Registered [facility] 04/07/16 10:05am KATHY HCUN APRN Registered [facility] 02/22/16 8:19am JUAN HUNT FACS, MD [facility] 02/15/16 8:05am JUAN HUNT FACS, MD
--- OUTSIDE RECORDS SUMMARY | 2016-10-30 16:15 | XMS REPORT ---
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
[2016-10-30 16:19] VITALS: Ht 152.4 cm; Wt 106.0 kg
--- NOTE | 2016-10-30 16:30 | ERPDOC ---
Departure Disposition Decision Date: October 30, 2016 Disposition Decision Time: 17:40 Disposition: 01 DISCHARGED HOME, SELF-CARE Impression Impression Impression: Primary Impression: Ulcer, venous stasis Severity: Moderate Condition: Stable Seen By: Mid-level only Referrals: KATHY CHUN APRN (Family) Patient Instructions: Chronic Wound Care (ED) Problems/Meds/Labs Reviewed?: Yes Medications reviewed and manag: Yes Additional Instructions: Please follow up with your PCP or the wound care clinic for reevaluation of your wounds. Your labs and your chest xray today do look pretty good. Continue with your medications at home as you were doing before. Follow up care ordered?: Yes Mental Status: Alert, Oriented HPI - Skin General General Chief Complaint: Wound Recheck Stated Complaint: LEG SWELLING Time Seen by Provider: 16:18 Source: patient Exam Limitations: no limitations HPI - Skin General Initial Comments She has had some sores on her BLE for the last few months. Had been going to see wound care but recently has had home health come by twice a week. Today the home health nurse felt that the swelling in her legs had increased and so wanted to have her legs reevaluated. She denies any fever or chills at all. Has had some weeping of the BLE. Occurred At: home Onset: Gradual Duration: other (For the last several months) Severity: moderate Location: extremities (BLE) Possible Cause: no cause identified Associated Symptoms: edema (BLE), DENIES: blisters, change in skin texture, fever, flushing, headache, hives, jaundice, malaise, nasal congestion, numbness , pallor, paresthesia, petechiae, rash, sore throat, swelling/mass/lumps, tingling Hx of Similar Symptoms: No Allergies: Coded Allergies: Latex, Natural Rubber (Verified Allergy, Intermediate, HIVES, 05/10/16) Sulfa (Sulfonamide Antibiotics) (Verified Allergy, Mild, RASH, 05/10/16) sulfur dioxide (Verified Allergy, Mild, RASH, 05/10/16) codeine (Verified Allergy, Unknown, 10/30/16) Past History Patient Surgical History - in 1987 -cholecystectomy -right ear repair Past Medical History Integumentary: other (chronic wound on the BLE) Surgical History General: gallbladder Reproductive/: Family History Family History: Negative Vaccines Hx Influenza Vaccination: Yes (Mar 2016) Hx Pneumococcal Vaccination: No Social History Smoking Status: Never smoker Substance Use Type: does not use Alcohol Intake: none Review of Systems Constitutional Constitutional: DENIES: chills, dizziness, fatigue, fever, weakness Cardiovascular Cardiac: DENIES: chest pain, orthopnea Rhythm/Rate: DENIES: irregular beat, palpitations Vascular: pedal edema (BLE edema at the calves but ankles without edema noted.) Pulmonary Respiratory: DENIES: cough, dyspnea, sputum, tachypnea GI Upper Abdomen: DENIES: nausea, pain, vomiting Lower Abdomen: DENIES: constipation, diarrhea, pain Integumentary Skin: DENIES: rash Neurological General: DENIES: headache, numbness, tingling, weakness Physical Exam General General Nourishment: well nourished, well developed, appears stated age, no acute distress, adult General Body Habitus: well groomed Vitals and Pain First Documented Vital Signs Date Time Temp Pulse Resp B/P Pulse Ox O2 Delivery O2 Flow Rate FiO2 10/30/16 16:19 97.4 73 20 121/58 94 Room Air Weight: Kilograms: 106.000 Height (feet): 5 Height (inches): 0.00 Triage Pain Scale: RN VS reviewed by Provider: Yes Cardiovascular (brief) Cardiac: FOUND: pedal edema (No pedal edema but bilatera calves with swelling and sores noted.), peripheral edema, regular rate, regular rhythm Capillary Refill: <2 sec Pulses: all distal extremities, equal, strong Differential Diagnoses Considering: Hives/Urticaria, Other (CHF exacerbation, BLE edema, cellulitis, chronic wounds, venous stasis) Progress Results/Orders Orders Procedure Category Date Status Time Probnp LAB 10/30/16 Complete 16:18 Chest, Pa & Lateral RAD 10/30/16 Resulted Cbc W/Auto LAB 10/30/16 Complete Diff-Reflex Manual Bmp - Basic Metabolic LAB 10/30/16 Complete Panel Lab Results Laboratory Tests Test 10/30/16 16:42 White Blood Count 7.8T/MM3 Red Blood Count 4.40M/MM3 Hemoglobin 12.8GM/DL Hematocrit 41.4% Mean Corpuscular Volume 94.1UM3 Mean Corpuscular Hemoglobin 29.1UUG Mean Corpuscular Hemoglobin Concent 30.9GM/DL RDW Standard Deviation 51.5FL Platelet Count 184T/MM3 Mean Platelet Volume 11.8UM3 Immature Granulocyte % (Auto) 0.6% Neutrophils (%) (Auto) 75.8% Lymphocytes (%) (Auto) 11.8% Monocytes (%) (Auto) 9.4% Eosinophils (%) (Auto) 1.9% Basophils (%) (Auto) 0.5% Absolute Immature Granulocyte (auto 0.05T/MM3 Absolute Neutrophils (auto) 5.9T/MM3 Absolute Lymphocytes (auto) 0.9T/MM3 Absolute Monocytes (auto) 0.7T/MM3 Absolute Eosinophils (auto) 0.2T/MM3 Absolute Basophils (auto) 0.0T/MM3 Turbidity < 20 Sodium Level 141MEQ/L Potassium Level 4.5MEQ/L Chloride Level 103MEQ/L Carbon Dioxide Level 29MEQ/L Anion Gap 9MEQ/L Blood Urea Nitrogen 38.0MG/DL Creatinine 0.9MG/DL Glomerular Filtration Rate Calc 63 BUN/Creatinine Ratio 42RATIO Glucose Level 220MG/DL Calculated Osmolality 287MOSM/KG Calcium Level 7.9MG/DL Icterus Index < 2 UK-Ngj-[id number]-Type Natriuretic Peptide 4400PG/ML Chemistry Specimen Hemolysis < 15 Progress Progress CBC and BMP today are elda. Chest xray without pulmonary edema or cardiac enlargement. I did talk with her and she does feel like her problem with the swelling may be that they dont use fully latex free products on her legs. I did advise that she talk with her PCP whom she will see tomorrow in clinic or the wound care center about her legs as well. Return to Er with any new issues/ concerns. Xray Xray : Reason for Exam: BLE edema Xray: CXR PA/Lat Interpretation: Normal JIA OLSON FORESTRY AIDE October 30, 2016 16:30
--- NOTE | 2016-10-30 16:39 | DI ---
INDICATION: ITS.REASON: BLE edema PROCEDURE: CHEST 2-VIEWS UPRIGHT (PA \T\ LAT) Encounter: Initial COMPARISON: None FINDINGS: The lungs are clear without evidence of focal abnormal airspace opacity. There is no pleural effusion or pneumothorax. There is mild wedging of a few the mid thoracic vertebral bodies which appear remote. No definite acute compression fracture. There is perhaps mild tortuosity of the descending thoracic aorta. The heart size, mediastinal contours and pulmonary vascularity are within normal limits. There is no significant skeletal abnormality. IMPRESSION: No acute cardiopulmonary disease. .
[2016-10-30] MEDS ORDERED: ACET-62 PO (16:43)
[2016-10-30] MEDS ORDERED: MELO-273 PO (16:47)
[2016-10-30] MEDS ORDERED: FLUT16SP EA NOSTRIL (16:47)
[2016-10-30] MEDS ORDERED: INSU100I3 SQ ×3 (16:47)
[2016-10-30 17:11] LABS: BASOPHILS % (AUTO) 0.5 % (0-2); EOSINOPHILS # (AUTO) 0.2 T/MM3 (0-0.5); EOSINOPHILS % (AUTO) 1.9 % (0-4); HCT - HEMATOCRIT 41.4 % (36-46); HGB - HEMOGLOBIN 12.8 GM/DL (12-16); IMMATURE GRANULOCYTE # (AUTO) 0.05 T/MM3 (0.00-0.03); IMMATURE GRANULOCYTE % (AUTO) 0.6 % (0.0-0.5); LYMPHOCYTES # (AUTO) 0.9 T/MM3 (1-4.8); LYMPHOCYTES % (AUTO) 11.8 % (23-45); MEAN CORPUSCULAR HGB 29.1 UUG (26-34); MEAN CORPUSCULAR HGB CONC(MCHC 30.9 GM/DL (31-37); MEAN CORPUSCULAR VOLUME 94.1 UM3 (80-100); MEAN PLATELET VOLUME 11.8 UM3 (9.4-12.4); MONOCYTES # (AUTO) 0.7 T/MM3 (0-0.8); MONOCYTES % (AUTO) 9.4 % (0-9.0); NEUTROPHILS #(AUTO)-ABSOLUTE 5.9 T/MM3 (1.8-7.7); NEUTROPHILS % (AUTO) 75.8 % (33-66); WBC - WHITE BLOOD COUNT 7.8 T/MM3 (4.5-11.0)
[2016-10-30 17:16] LABS: ANION GAP 9 MEQ/L (5-15); BUN/CREATININE RATIO 42 RATIO (6-26); CALCIUM 7.9 MG/DL (8.4-10.2); CHLORIDE 103 MEQ/L (98-107); CO2 - CARBON DIOXIDE 29 MEQ/L (22-30); CREATININE 0.9 MG/DL (0.7-1.2); GLOMERULAR FILTRATION RATE 63; GLUCOSE 220 MG/DL (65-110); POTASSIUM 4.5 MEQ/L (3.6-5); SODIUM 141 MEQ/L (134-144)
--- NOTE | 2016-10-30 18:12 | NUR ---
TRANSPORTATION [place] GALVIN NOTIFIED OF PT NEED FOR A RIDE.
[2016-10-30 18:30] VITALS: BP 125/62; PULSE 77; RESP 16; TEMP 97.4; O2SAT 94
== END 2016-10-30 18:30 | disposition home or self-care (01) ==
LOC: ED 16:11
DX: I83.202 Varicose veins of unspecified lower extremity with both ulcer of calf and inflammation (principal); L97.219 Non-pressure chronic ulcer of right calf with unspecified severity; L97.229 Non-pressure chronic ulcer of left calf with unspecified severity
CPT/HCPCS: 36415; 80048; 83880; 85025